=== PATIENT | female | born 2000 | race Two or more races ===

== ENCOUNTER 2020-05-22 05:59 | Observation (INO) ==
[2020-05-22 06:49] LABS: BASOPHILS % (AUTO) 0.2 % (0.2-1.0); EOSINOPHILS % (AUTO) 0.1 % (0.9-2.9); HEMATOCRIT 35.1 % (36.0-47.0); HEMOGLOBIN 11.7 g/dL (12.0-16.0); LYMPHOCYTES # (AUTO) 0.9 X10^3/uL (1.3-2.9); LYMPHOCYTES % (AUTO) 6.3 % (21.0-51.0); MEAN CORPUSCULAR HEMOGLOBIN 28.6 pg (27.0-34.0); MEAN CORPUSCULAR HGB CONC 33.3 g/dL (33.0-35.0); MEAN CORPUSCULAR VOLUME 85.8 fL (80.0-100.0); MONOCYTES # (AUTO) 1.2 x10^3/uL (0.3-0.8); MONOCYTES % (AUTO) 8.3 % (0.0-13.0); NEUTROPHILS # (AUTO) 12.3 x10^3/uL (2.2-4.8); NEUTROPHILS % (AUTO) 85.1 % (42.0-75.0); PLATELET COUNT 386 X10^3/uL (150.0-450.0); RED BLOOD COUNT 4.09 X10^6/uL (3.5-5.4); RED CELL DISTRIBUTION WIDTH 12.8 % (11.6-16.5); WHITE BLOOD COUNT 14.4 X10^3/uL (3.6-10.0)
[2020-05-22 06:49] LABS: BILIRUBIN,URINE NEGATIVE (NEGATIVE); BLOOD/HEMOGLOBIN,URINE 2+ (NEGATIVE); GLUCOSE, URINE NEGATIVE (NEGATIVE); KETONES,URINE 4+ (NEGATIVE); LEUKOCYTE ESTERASE ,URINE 3+ (NEGATIVE); NITRITES,URINE NEGATIVE (NEGATIVE); PROTEIN,URINE 1+ (NEGATIVE); UROBILINOGEN,URINE 2+ (NORMAL)
[2020-05-22 07:01] LABS: eGFR NON BLACK RACES > 60 (>60)
[2020-05-22 07:05] LABS: SERUM PREGNANCY TEST, QUAL NEGATIVE <10 mIU/mL
[2020-05-22 07:06] LABS: APPEARANCE,URINE CLOUDY (CLEAR); BACTERIA,URINE 1+ /HPF (NEGATIVE); COLOR,URINE YELLOW (YELLOW); RBC,URINE 0-2 /HPF (0-3); SQUAMOUS EPITHELIAL CELL,UR FEW /HPF (NEGATIVE)
[2020-05-22 07:09] LABS: AMYLASE 36 Units/L (25-115); LIPASE 96 Units/L (73-393)
[2020-05-22 07:15] LABS: ALANINE AMINOTRANSFERASE 15 Units/L (12-78); ALBUMIN 3.7 g/dL (3.4-5.0); ALKALINE PHOSPHATASE 72 Units/L (46-116); ASPARTATE AMINO TRANSFERASE 16 Units/L (15-37); BLOOD UREA NITROGEN 7 mg/dL (7-18); CALCIUM 9.5 mg/dL (8.5-10.1); CHLORIDE 100 mmol/L (98-107); COR NA(FOR HYPERGLY) 136 mmol/L (136-145); SODIUM 135 mmol/L (136-145); TOTAL PROTEIN 8.2 g/dL (6.4-8.2)
[2020-05-22] MEDS ORDERED: NS 1000 ML 1,000 ML IV ONE (07:39)
[2020-05-22] MEDS ORDERED: ZOFRAN INJ 4 MG VIAL IVP ONE (07:39)
[2020-05-22] MEDS ORDERED: TORADOL 30 MG VIAL IVP ONE (07:39)
[2020-05-22] MEDS ORDERED: ZOFRAN INJ 4 MG VIAL ONE ×2 (07:44→09:46)
[2020-05-22] MEDS ORDERED: TORADOL 30 MG VIAL ONE ×2 (07:44→09:46)
--- NOTE | 2020-05-22 07:44 | ED.ABDFE ---
HPI Time Seen Time Seen by Provider: 05/22/20 07:34 PCP Primary Care Physician: FRANK HPI Comment HPI Comment: Patient presents with 3 days of N/V and low back/right flank pain. No fever or known sick contact. No bad food exposure. Not currently on menstrual period. Patient notes that she has been unable to tolerate po. no radiation of pain. No history of kidney stone. Complaint Chief Complaint:: PT AMBULATORY IN ED WITH C/O ABD PAIN X 3 DAYS. COVID-19 Coronavirus risk:travel/contact w/high risk person: No Has patient experienced Coronavirus symptoms: Yes Coronavirus symptoms experienced: Fever, Coughing and Shortness of Breath Source History Provided: Patient Mode of arrival Mode of Arrival: Ambulatory Timing Onset of Chief Complaint: 05/18/20 PMH PMH Past Medical History: No Past Surgical History: No Surgical History: No History Family History History of Family Medical Conditions: Yes Family Medical History: Diabetes Mellitus, Cancer, [place], Coronary Artery Disease and Hypertension Social History Does patient currently use any type of tobacco product: No Have you used tobacco products in the last 12 months: No Type of Tobacco Use: None Does any household member use tobacco: No Alcohol Use: None Do you use any recreational Drugs:: No Lives With: Family Lives Where: Home Travel Risk Coronavirus risk:travel/contact w/high risk person: No Has patient experienced Coronavirus symptoms: Yes Coronavirus symptoms experienced: Fever, Coughing and Shortness of Breath Infectious screening In the last 2 months have you had wt loss of >10#?: NO Have you had fever, night sweats or hemotysis?: No Have you traveled outside the country in the last 6 months?: No Isolation: Standard ROS Review of Systems Constitutional: See HPI Gastrointestinal/Abdominal: Abdominal Pain, Nausea and Vomiting Genitourinary: No Symptoms Reported All Other Systems: Reviewed and Negative PE Vital Signs Vitals: Temperature 99.7 F Pulse Rate 90 Respiratory Rate 20 Blood Pressure 134/79 O2 Sat by Pulse Oximetry 95 General Limitations: No Limitations General Appearance: Alert and In No Apparent Distress Head Head Exam: Normal Inspection, Atraumatic and Normocephalic Eyes Eye exam: Normal Appearance and EOMI ENT ENT Exam: Normal Exam Neck Neck Exam: Normal Inspection and Full ROM Chest Chest Inspection: Normal Inspection and Symmetric Chest Wall Rise Respiratory Respiratory Exam: Normal Lung Sounds Bilat Respiratory Exam: Bilateral: Clear to Auscultation Cardiovascular Cardiovascular Exam: Regular Rate, Normal Rhythm and Normal Heart Sounds Abdominal Exam Abdominal Exam: Normal Inspection, Normal Bowel Sounds and Soft Back Back Exam: (R) CVA Tenderness Extremeties Extremities Exam: Normal Inspection and Full ROM Neurologic Neurological Exam: Alert and Oriented X3 Psychiatric Psychiatric Exam: Normal Affect and Normal Mood Skin Skin Exam: Warm, Dry and Intact ROR Labs Reviewed Result Diagrams: 05/22/20 06:25 05/22/20 06:25 Laboratory: WBC 14.4 X10^3/uL (3.6-10.0) H 05/22/20 06:25 RBC 4.09 X10^6/uL (3.5-5.4) 05/22/20 06:25 Hgb 11.7 g/dL (12.0-16.0) L 05/22/20 06:25 Hct 35.1 % (36.0-47.0) L 05/22/20 06:25 MCV 85.8 fL (80.0-100.0) 05/22/20 06:25 MCH 28.6 pg (27.0-34.0) 05/22/20 06:25 MCHC 33.3 g/dL (33.0-35.0) 05/22/20 06:25 RDW 12.8 % (11.6-16.5) 05/22/20 06:25 Plt Count 386 X10^3/uL (150.0-450.0) 05/22/20 06:25 MPV 8.0 fL (7.4-11.0) 05/22/20 06:25 Neut % (Auto) 85.1 % (42.0-75.0) H 05/22/20 06:25 Lymph % (Auto) 6.3 % (21.0-51.0) L 05/22/20 06:25 [place] % (Auto) 8.3 % (0.0-13.0) 05/22/20 06:25 Eos % (Auto) 0.1 % (0.9-2.9) L 05/22/20 06:25 Baso % (Auto) 0.2 % (0.2-1.0) 05/22/20 06:25 Neut # (Auto) 12.3 x10^3/uL (2.2-4.8) H 05/22/20 06:25 Lymph # (Auto) 0.9 X10^3/uL (1.3-2.9) L 05/22/20 06:25 [place] # (Auto) 1.2 x10^3/uL (0.3-0.8) H 05/22/20 06:25 Eos # (Auto) 0.0 x10^3/uL (0.0-0.2) 05/22/20 06:25 Baso # (Auto) 0.0 X10^3/uL (0.0-0.1) 05/22/20 06:25 Absolute Nucleated RBC 0.0 /100WBC 05/22/20 06:25 Sodium 135 mmol/L (136-145) L 05/22/20 06:25 Corrected Sodium 136 mmol/L (136-145) 05/22/20 06:25 Potassium 3.5 mmol/L (3.5-5.1) 05/22/20 06:25 Chloride 100 mmol/L (98-107) 05/22/20 06:25 Carbon Dioxide 23.0 mmol/L (21-32) 05/22/20 06:25 BUN 7 mg/dL (7-18) 05/22/20 06:25 Creatinine 0.70 mg/dL (0.55-1.02) 05/22/20 06:25 Est GFR (MDRD) Af Amer > 60 (>60) 05/22/20 06:25 Est GFR (MDRD) Non-Af > 60 (>60) 05/22/20 06:25 Glucose 134 mg/dL (65-99) H 05/22/20 06:25 Calcium 9.5 mg/dL (8.5-10.1) 05/22/20 06:25 Corrected Calcium TNP 05/22/20 06:25 Total Bilirubin 0.60 mg/dL (0.2-1.0) 05/22/20 06:25 AST 16 Units/L (15-37) 05/22/20 06:25 ALT 15 Units/L (12-78) 05/22/20 06:25 Alkaline Phosphatase 72 Units/L (46-116) 05/22/20 06:25 Total Protein 8.2 g/dL (6.4-8.2) 05/22/20 06:25 Albumin 3.7 g/dL (3.4-5.0) 05/22/20 06:25 Globulin 4.5 g/dL (2.5-4.5) 05/22/20 06:25 Albumin/Globulin Ratio 0.8 Ratio (1.1-2.1) L 05/22/20 06:25 Amylase 36 Units/L (25-115) 05/22/20 06:25 Lipase 96 Units/L (73-393) 05/22/20 06:25 HCG, Qual Negative <10 mIU/mL 05/22/20 06:25 Specimen Type Clean catch urine 05/22/20 06:30 Urine Color Yellow (YELLOW) 05/22/20 06:30 Urine Appearance Cloudy (CLEAR) 05/22/20 06:30 Urine pH 6.0 (5.0 - 8.0) 05/22/20 06:30 Ur Specific [place] 1.025 (1.000-1.030) 05/22/20 06:30 Urine Protein 1+ (NEGATIVE) 05/22/20 06:30 Urine Glucose (UA) Negative (NEGATIVE) 05/22/20 06:30 Urine Ketones 4+ (NEGATIVE) 05/22/20 06:30 Urine Occult Blood 2+ (NEGATIVE) 05/22/20 06:30 Urine Nitrite Negative (NEGATIVE) 05/22/20 06:30 Urine Bilirubin Negative (NEGATIVE) 05/22/20 06:30 Urine Urobilinogen 2+ (NORMAL) 05/22/20 06:30 Ur Leukocyte Esterase 3+ (NEGATIVE) 05/22/20 06:30 Urine RBC 0-2 /HPF (0-3) 05/22/20 06:30 Urine WBC 5-10 /HPF (0-5) A 05/22/20 06:30 Ur Squamous Epith Cells Few /HPF (NEGATIVE) 05/22/20 06:30 Urine Bacteria 1+ /HPF (NEGATIVE) 05/22/20 06:30 Ur Culture Indicated? Yes/culture set up 05/22/20 06:30 Opioid Opioid Risk Tool Age (Ralph box if 16-45): Yes History of Preadolescent Sexual Abuse: No Total: 1 Total Score Risk Category: Low Risk Copyright: Travis RUSSELL predicting aberrant behaviors
[2020-05-22] MEDS ORDERED: NS 1000 ML 1,000 ML ONE ×2 (07:45→09:59)
--- NOTE | 2020-05-22 08:19 | RAD ---
Exam:ACUTE ABDOMEN SERIESIndication: C/O ABD PAIN X 3 DAYSComparison: [None available]Findings: [The lungs are clear. No pleural effusion or pneumothorax. The heart size is within normal limts.The bowel gas pattern is unremarkable, specifically there is no radiographic evidence to suggest an obstruction. No free air or pneumatosis.No definite mass or abnormal calcification within the abdomen or pelvis.No acute osseous abnormality.Impression:No acute cardiopulmonary abnormality.No acute radiographic abnormality within the abdomen or pelvis.]Electronically signed by: GAMA GUZMAN (May 22, 2020 08:18:51)
--- NOTE | 2020-05-22 08:30 | ED.ABDFE ---
HPI Time Seen Time Seen by Provider: 05/22/20 07:34 PCP Primary Care Physician: FRANK HPI Comment HPI Comment: PATIENT IS 20YR OLD FEMALE IN ER WITH EPIGASTRIC ABDOMINAL PAIN RADIATING ON BOTH SIDES TO TH BACK AND UP THE CHEST ASSOCIATED WITH NAUSEA AND VOMITING TIMES 3 DAYS. VOMITUS UNDIGESTED FOOD. RUNNING LOW GRADE FEVER. PAIN IS 7/10 AND BURNING CRAMPING IN NATURE. SIMILAR MILDER PAIN SINCE OCTOBER THIS YEAR. VOMITING DID NOT ALLOW HER TO TAKE MEDICATION BY MOUTH. Complaint Doctors Chief Complaint Comments: ABDOMINAL PAIN TIMES 3 DAYS. Chief Complaint:: PT AMBULATORY IN ED WITH C/O ABD PAIN X 3 DAYS. COVID-19 Coronavirus risk:travel/contact w/high risk person: No Has patient experienced Coronavirus symptoms: Yes Coronavirus symptoms experienced: Fever, Coughing and Shortness of Breath Source History Provided: Patient Mode of arrival Mode of Arrival: Ambulatory Timing Onset of Chief Complaint: 05/18/20 Came on: Suddenly Duration Since Onset: Constant Duration: Days Location Location: Epigastric Severity Severity: Moderate Quality Quality: Sharp Context History of: None Modifying factors Worsening Factors: Food Improving Factors: Nothing Associated signs and symptoms Associated Signs and Symptoms: Nausea, Vomiting and Other (EPIGASTRIC PAIN) PMH PMH Past Medical History: No Past Surgical History: No Surgical History: No History Family History History of Family Medical Conditions: Yes Family Medical History: Diabetes Mellitus, Cancer, [place], Coronary Artery Disease and Hypertension Social History Does patient currently use any type of tobacco product: No Have you used tobacco products in the last 12 months: No Type of Tobacco Use: None Does any household member use tobacco: No Alcohol Use: None Do you use any recreational Drugs:: No Lives With: Family Lives Where: Home Travel Risk Coronavirus risk:travel/contact w/high risk person: No Has patient experienced Coronavirus symptoms: Yes Coronavirus symptoms experienced: Fever, Coughing and Shortness of Breath Infectious screening In the last 2 months have you had wt loss of >10#?: NO Have you had fever, night sweats or hemotysis?: No Have you traveled outside the country in the last 6 months?: No Isolation: Standard ROS Review of Systems Constitutional: See HPI, Fever and Fatigue; negative Weakness Eyes: No Symptoms Reported and See HPI ENTM: No Symptoms Reported and See HPI; negative Nose Discharge and Nose Congestion Respiratoy: No Symptoms Reported and See HPI; negative Moist Cough, Short of Breath and Wheezing Cardiovascular: No Symptoms Reported and See HPI; negative Chest Pain, Edema and Palpitations Gastrointestinal/Abdominal: See HPI, Abdominal Pain, Nausea and Vomiting; negative Constipation and Diarrhea Genitourinary: No Symptoms Reported and See HPI; negative Dysuria, Frequency and Hematuria Neurological: No Symptoms Reported and See HPI; negative Headache, Weakness and Dizziness Musculoskeletal: No Symptoms Reported and See HPI; negative Back Pain and Muscle Pain Integumentary: No Symptoms Reported and See HPI; negative Change in Color, Rash and Juandice Hematologic/Lymphatic: No Symptoms Reported and See HPI; negative Easy Bruising and Swollen Glands Endocrine: No Symptoms Reported and See HPI; negative Increased Thirst and Increased Urine Psychiatric: No Symptoms Reported and See HPI All Other Systems: Reviewed and Negative PE Vital Signs Vitals: Temperature 99.7 F Pulse Rate 90 Respiratory Rate 22 Blood Pressure 134/79 O2 Sat by Pulse Oximetry 95 General Limitations: No Limitations and Language Barrier General Appearance: Alert and In No Apparent Distress Head Head Exam: Normal Inspection Eyes Eye exam: Normal Appearance and PERRL; negative Scleral Icterus and Conjunctival Injection ENT ENT Exam: Normal Exam, Normal Oropharynx, Normal External Ear Exam and TM's Normal Bilaterally Neck Neck Exam: Normal Inspection and Trachea Midline; negative Tenderness and Lymphadenopathy Chest Chest Inspection: Normal Inspection and Symmetric Chest Wall Rise; negative Tenderness Respiratory Respiratory Exam: Normal Lung Sounds Bilat; negative Accessory Muscle Use, Chest Wall Tenderness and Respiratory Distress Respiratory Exam: Bilateral: Clear to Auscultation Cardiovascular Cardiovascular Exam: Regular Rate, Normal Rhythm and Normal Heart Sounds; negative Systolic Murmur and Diastolic Murmur Abdominal Exam Abdominal Exam: Normal Inspection, Normal Bowel Sounds, Soft and Tenderness Rectal Rectal Exam: Deferred Back Back Exam: Normal Inspection; negative (R) CVA Tenderness, (L) CVA Tenderness and Paraspinal Tenderness Extremeties Extremities Exam: Normal Inspection and Normal Capillary Refill; negative Tenderness and Calf Tenderness External Exam: Female: Deferred : Speculum Exam (Female): Deferred : Bimanual Exam (female): Deferred Neurologic Neurological Exam: Alert, Oriented X3 and CN II-XII Intact; negative Motor Sensory Deficit Psychiatric Psychiatric Exam: Normal Affect and Normal Mood Skin Skin Exam: Warm, Dry, Intact and Normal Color MDM Differential Diagnosis Differential Diagnosis- Considerations may include:: Bowel Obstruction, Cholcystitis, Cholelethiasis, Constipation, Diverticular disease, Gastritus/PUD, Inflammatory BD, Pancreatitis, Urinary tract infection and Urolithiasis COURSE Treatment Treatment: SEE ORDERS. NS 1L IV BOLUS IN ER WITH ZOFRAN 4MG IV AND TORADOL 30MG IV IN ER. Reevaluation 1st: Improved Consultation Consultation Comments: DISCUSSED PATIENT WITH DR. BRADY. HE WILL ADMIT PATIENT. DR. ELKINS CONSULTED. Education/Counseling Education/Counseling: Patient Educated On: Diagnosis ROR Labs Reviewed Laboratory Results Reviewed?: Yes Result Diagrams: 05/22/20 06:25 05/22/20 06:25 Laboratory: WBC 14.4 X10^3/uL (3.6-10.0) H 05/22/20 06:25 RBC 4.09 X10^6/uL (3.5-5.4) 05/22/20 06:25 Hgb 11.7 g/dL (12.0-16.0) L 05/22/20 06:25 Hct 35.1 % (36.0-47.0) L 05/22/20 06:25 MCV 85.8 fL (80.0-100.0) 05/22/20 06:25 MCH 28.6 pg (27.0-34.0) 05/22/20 06:25 MCHC 33.3 g/dL (33.0-35.0) 05/22/20 06:25 RDW 12.8 % (11.6-16.5) 05/22/20 06:25 Plt Count 386 X10^3/uL (150.0-450.0) 05/22/20 06:25 MPV 8.0 fL (7.4-11.0) 05/22/20 06:25 Neut % (Auto) 85.1 % (42.0-75.0) H 05/22/20 06:25 Lymph % (Auto) 6.3 % (21.0-51.0) L 05/22/20 06:25 [place] % (Auto) 8.3 % (0.0-13.0) 05/22/20 06:25 Eos % (Auto) 0.1 % (0.9-2.9) L 05/22/20 06:25 Baso % (Auto) 0.2 % (0.2-1.0) 05/22/20 06:25 Neut # (Auto) 12.3 x10^3/uL (2.2-4.8) H 05/22/20 06:25 Lymph # (Auto) 0.9 X10^3/uL (1.3-2.9) L 05/22/20 06:25 [place] # (Auto) 1.2 x10^3/uL (0.3-0.8) H 05/22/20 06:25 Eos # (Auto) 0.0 x10^3/uL (0.0-0.2) 05/22/20 06:25 Baso # (Auto) 0.0 X10^3/uL (0.0-0.1) 05/22/20 06:25 Absolute Nucleated RBC 0.0 /100WBC 05/22/20 06:25 Sodium 135 mmol/L (136-145) L 05/22/20 06:25 Corrected Sodium 136 mmol/L (136-145) 05/22/20 06:25 Potassium 3.5 mmol/L (3.5-5.1) 05/22/20 06:25 Chloride 100 mmol/L (98-107) 05/22/20 06:25 Carbon Dioxide 23.0 mmol/L (21-32) 05/22/20 06:25 BUN 7 mg/dL (7-18) 05/22/20 06:25 Creatinine 0.70 mg/dL (0.55-1.02) 05/22/20 06:25 Est GFR (MDRD) Af Amer > 60 (>60) 05/22/20 06:25 Est GFR (MDRD) Non-Af > 60 (>60) 05/22/20 06:25 Glucose 134 mg/dL (65-99) H 05/22/20 06:25 Calcium 9.5 mg/dL (8.5-10.1) 05/22/20 06:25 Corrected Calcium TNP 05/22/20 06:25 Total Bilirubin 0.60 mg/dL (0.2-1.0) 05/22/20 06:25 AST 16 Units/L (15-37) 05/22/20 06:25 ALT 15 Units/L (12-78) 05/22/20 06:25 Alkaline Phosphatase 72 Units/L (46-116) 05/22/20 06:25 Total Protein 8.2 g/dL (6.4-8.2) 05/22/20 06:25 Albumin 3.7 g/dL (3.4-5.0) 05/22/20 06:25 Globulin 4.5 g/dL (2.5-4.5) 05/22/20 06:25 Albumin/Globulin Ratio 0.8 Ratio (1.1-2.1) L 05/22/20 06:25 Amylase 36 Units/L (25-115) 05/22/20 06:25 Lipase 96 Units/L (73-393) 05/22/20 06:25 HCG, Qual Negative <10 mIU/mL 05/22/20 06:25 Specimen Type Clean catch urine 05/22/20 06:30 Urine Color Yellow (YELLOW) 05/22/20 06:30 Urine Appearance Cloudy (CLEAR) 05/22/20 06:30 Urine pH 6.0 (5.0 - 8.0) 05/22/20 06:30 Ur Specific [place] 1.025 (1.000-1.030) 05/22/20 06:30 Urine Protein 1+ (NEGATIVE) 05/22/20 06:30 Urine Glucose (UA) Negative (NEGATIVE) 05/22/20 06:30 Urine Ketones 4+ (NEGATIVE) 05/22/20 06:30 Urine Occult Blood 2+ (NEGATIVE) 05/22/20 06:30 Urine Nitrite Negative (NEGATIVE) 05/22/20 06:30 Urine Bilirubin Negative (NEGATIVE) 05/22/20 06:30 Urine Urobilinogen 2+ (NORMAL) 05/22/20 06:30 Ur Leukocyte Esterase 3+ (NEGATIVE) 05/22/20 06:30 Urine RBC 0-2 /HPF (0-3) 05/22/20 06:30 Urine WBC 5-10 /HPF (0-5) A 05/22/20 06:30 Ur Squamous Epith Cells Few /HPF (NEGATIVE) 05/22/20 06:30 Urine Bacteria 1+ /HPF (NEGATIVE) 05/22/20 06:30 Ur Culture Indicated? Yes/culture set up 05/22/20 06:30 XRAY XRAY Interpreted by: Radiologist (REPORT NOTED AND DISCUSSED WITH PATIENT.) and Self Opioid Opioid Risk Tool Age (Ralph box if 16-45): Yes History of Preadolescent Sexual Abuse: No Total: 1 Total Score Risk Category: Low Risk Copyright: Travis RUSSELL predicting aberrant behaviors Diagnosis Discharge Problem: Acute cholecystitis Cholelithiases Qualifiers: Cholelithiasis location: gallbladder Cholecystitis presence: with cholecystitis Cholecystitis acuity: acute Biliary obstruction: without biliary obstruction Qualified Code(s): K80.00 - Calculus of gallbladder with acute cholecystitis without obstruction Abdominal pain Qualifiers: Abdominal location: epigastric Qualified Code(s): R10.13 - Epigastric pain Nausea & vomiting Qualifiers: Vomiting type: bilious vomiting Qualified Code(s): R11.14 - Bilious vomiting Instructions Forms: Precautions for COVID19 Patient Portal Social Distancing
--- NOTE | 2020-05-22 08:31 | CT ---
HISTORYC/O ABD PAIN X 3 DAYSSTUDYABDOMEN/PELVIS W/O CONCOMPARISONNone availableTECHNIQUEMultiple axial images of the abdomen and pelvis were obtained from the lung bases to the pubic symphysis without the administration of IV contrast. Dose reduction techniques including Automated Exposure Control (AEC) and adjustment of mA and kV were utilized.FINDINGS[The lung bases are clear. Heart size is normal. Given limitations of a noncontrast examination no focal hepatic lesion. Liver morphology is normal. Gallbladder is abnormal and is, moderately dilated with marked submucosal edema and increased density within the lumen. Bile ducts are normal in caliber. The spleen, pancreas and adrenal glands are normal. Neither kidney demonstrates evidence of nephrolithiasis, hydronephrosis or mass. Upper GI tract demonstrates no evidence of mass or obstruction. Small amount of pelvic free fluid. Uterus is globular in morphology without definite mass or fibroid. The rectum and colon are normal. The appendix is normal. Abdominal aorta is normal in caliber. No enlarged abdominal or pelvic lymph node. Review of bone windows demonstrates no acute osseous abnormality.]IMPRESSIONAbnormal gallbladder with moderate dilatation, submucosal edema and increased density within the gallbladder lumen, this likely represents combination of sludge and stones however given the density clot/hemorrhage within the lumen is not excluded. Correlation with physical exam findings and right upper quadrant sonogram is recommended as this is suspicious for acute cholecystitis. Other causes of submucosal edema including hypoproteinemia and/or acute viral hepatitis are considerations however would be a diagnosis of exclusion.Electronically signed by: GAMA GUZAMN (May 22, 2020 08:31:27)
[2020-05-22] MEDS ORDERED: DECADRON INJ ONE (09:46)
[2020-05-22] MEDS ORDERED: DIPRIVAN VIAL ONE (09:46)
[2020-05-22] MEDS ORDERED: QUELICIN (OR ANECTINE) ONE (09:46)
[2020-05-22] MEDS ORDERED: NORCURON INJ 10 MG VIAL ONE (09:46)
[2020-05-22] MEDS ORDERED: XYLOCAINE 1 % (PLAIN) ONE (09:46)
[2020-05-22] MEDS ORDERED: NEOSTIGMINE INJ ONE (09:46)
[2020-05-22] MEDS ORDERED: ULTANE GAS IN ONE (09:46)
[2020-05-22] MEDS ORDERED: VERSED ONE (09:46)
[2020-05-22] MEDS ORDERED: ROBINUL ONE (09:46)
[2020-05-22] MEDS ORDERED: ZOSYN VIAL 3.375 GRAMS IV ONE (09:59)
[2020-05-22] MEDS ORDERED: NS 100 ML IV 100 ML IV ONE (10:00)
[2020-05-22] MEDS: NS 1000 ML 1,000 ML IV SCH ×2 (10:16→20:26)
[2020-05-22] MEDS: ZOSYN VIAL 3.375 GRAMS 3.375 G in NS 100 ML IV + SPIKE MINIBAG* 100 ML IV SCH ×3 (10:17→21:17)
--- NOTE | 2020-05-22 10:59 | DR.H&P ---
H&P History & Physical for Day of: H&P Date: 05/22/20 Chief Complaint Chief Complaint: Abdominal pain Allergies Allergies Allergy/AdvReac Type Severity Reaction Status Date / Time No Known Drug Allergies Allergy Verified 05/22/20 06:07 History of Present Illness History of Present Illness: Pt is a 20 yo f no pmhx presenting after having progressively worsening abdominal pain for the past 3 days. She reports associated symptoms nausea and vomiting. Pain is "cramping" and persistent. Labs/imaging: Wbc 14.4, Hgb 11.7, Plt 386, Na 135, K 3.5, Cr 0.7, Gluc 134, AST 16, ALT 15, ALK Phos 72, Lipase 96, HCG negative, UA:+leuks, ketones, protein, wbc, bacteria; UrineCx pending, Abd XR: negative, CTAP:Abnormal gallbladder with moderate dilatation, submucosal edema and increased density within the gallbladder lumen, this likely represents combination of sludge and stones however given the density clot/hemorrhage within the lumen is not excluded. Correlation with physical exam findings and right upper quadrant sonogram is recommended as this is suspicious for acute cholecystitis. Other causes of submucosal edema including hypoproteinemia and/or acute viral hepatitis are considerations however would be a diagnosis of exclusion. Treatment course includes: IVF NS@125ml/h, Abx: Zosyn, Zofran prn, Demerol and Toradol for pain. She is on full liquid diet, will be NPO after midnight. Imaging concerning for acute cholecystitis. Will get U/S gallbladder, and consult surgery for further evaluation. Continue to monitor and follow up labs/imaging in the morning. Past Surgical History Surgical History: No History Family History Family Medical History: Diabetes Mellitus, Cancer, [place], Coronary Artery Disease and Hypertension Social History Does patient currently use any type of tobacco product: No Have you used tobacco products in the last 12 months: No Type of Tobacco Use: None Does any household member use tobacco: No Alcohol Use: None Medications Home Medications: No Known Drug Allergies Allergy (Verified 05/22/20 06:07) CONTINUE taking the following medications NK 05/22/20 [History] Labs Result Diagrams: 05/22/20 06:25 05/22/20 06:25 Labs: Laboratory WBC 14.4 X10^3/uL (3.6-10.0) H 05/22/20 06:25 RBC 4.09 X10^6/uL (3.5-5.4) 05/22/20 06:25 Hgb 11.7 g/dL (12.0-16.0) L 05/22/20 06:25 Hct 35.1 % (36.0-47.0) L 05/22/20 06:25 MCV 85.8 fL (80.0-100.0) 05/22/20 06:25 MCH 28.6 pg (27.0-34.0) 05/22/20 06:25 MCHC 33.3 g/dL (33.0-35.0) 05/22/20 06:25 RDW 12.8 % (11.6-16.5) 05/22/20 06:25 Plt Count 386 X10^3/uL (150.0-450.0) 05/22/20 06:25 MPV 8.0 fL (7.4-11.0) 05/22/20 06:25 Neut % (Auto) 85.1 % (42.0-75.0) H 05/22/20 06:25 Lymph % (Auto) 6.3 % (21.0-51.0) L 05/22/20 06:25 [place] % (Auto) 8.3 % (0.0-13.0) 05/22/20 06:25 Eos % (Auto) 0.1 % (0.9-2.9) L 05/22/20 06:25 Baso % (Auto) 0.2 % (0.2-1.0) 05/22/20 06:25 Neut # (Auto) 12.3 x10^3/uL (2.2-4.8) H 05/22/20 06:25 Lymph # (Auto) 0.9 X10^3/uL (1.3-2.9) L 05/22/20 06:25 [place] # (Auto) 1.2 x10^3/uL (0.3-0.8) H 05/22/20 06:25 Eos # (Auto) 0.0 x10^3/uL (0.0-0.2) 05/22/20 06:25 Baso # (Auto) 0.0 X10^3/uL (0.0-0.1) 05/22/20 06:25 Absolute Nucleated RBC 0.0 /100WBC 05/22/20 06:25 Sodium 135 mmol/L (136-145) L 05/22/20 06:25 Corrected Sodium 136 mmol/L (136-145) 05/22/20 06:25 Potassium 3.5 mmol/L (3.5-5.1) 05/22/20 06:25 Chloride 100 mmol/L (98-107) 05/22/20 06:25 Carbon Dioxide 23.0 mmol/L (21-32) 05/22/20 06:25 BUN 7 mg/dL (7-18) 05/22/20 06:25 Creatinine 0.70 mg/dL (0.55-1.02) 05/22/20 06:25 Est GFR (MDRD) Af Amer > 60 (>60) 05/22/20 06:25 Est GFR (MDRD) Non-Af > 60 (>60) 05/22/20 06:25 Glucose 134 mg/dL (65-99) H 05/22/20 06:25 Calcium 9.5 mg/dL (8.5-10.1) 05/22/20 06:25 Corrected Calcium TNP 05/22/20 06:25 Total Bilirubin 0.60 mg/dL (0.2-1.0) 05/22/20 06:25 AST 16 Units/L (15-37) 05/22/20 06:25 ALT 15 Units/L (12-78) 05/22/20 06:25 Alkaline Phosphatase 72 Units/L (46-116) 05/22/20 06:25 Total Protein 8.2 g/dL (6.4-8.2) 05/22/20 06:25 Albumin 3.7 g/dL (3.4-5.0) 05/22/20 06:25 Globulin 4.5 g/dL (2.5-4.5) 05/22/20 06:25 Albumin/Globulin Ratio 0.8 Ratio (1.1-2.1) L 05/22/20 06:25 Amylase 36 Units/L (25-115) 05/22/20 06:25 Lipase 96 Units/L (73-393) 05/22/20 06:25 HCG, Qual Negative <10 mIU/mL 05/22/20 06:25 Specimen Type Clean catch urine 05/22/20 06:30 Urine Color Yellow (YELLOW) 05/22/20 06:30 Urine Appearance Cloudy (CLEAR) 05/22/20 06:30 Urine pH 6.0 (5.0 - 8.0) 05/22/20 06:30 Ur Specific [place] 1.025 (1.000-1.030) 05/22/20 06:30 Urine Protein 1+ (NEGATIVE) 05/22/20 06:30 Urine Glucose (UA) Negative (NEGATIVE) 05/22/20 06:30 Urine Ketones 4+ (NEGATIVE) 05/22/20 06:30 Urine Occult Blood 2+ (NEGATIVE) 05/22/20 06:30 Urine Nitrite Negative (NEGATIVE) 05/22/20 06:30 Urine Bilirubin Negative (NEGATIVE) 05/22/20 06:30 Urine Urobilinogen 2+ (NORMAL) 05/22/20 06:30 Ur Leukocyte Esterase 3+ (NEGATIVE) 05/22/20 06:30 Urine RBC 0-2 /HPF (0-3) 05/22/20 06:30 Urine WBC 5-10 /HPF (0-5) A 05/22/20 06:30 Ur Squamous Epith Cells Few /HPF (NEGATIVE) 05/22/20 06:30 Urine Bacteria 1+ /HPF (NEGATIVE) 05/22/20 06:30 Ur Culture Indicated? Yes/culture set up 05/22/20 06:30 Review of Systems Constitutional: No Symptoms Reported Eyes: No Symptoms Reported ENT: No Symptoms Reported Respiratory: No Symptoms Reported Cardiovascular: No Symptoms Reported Gastrointestinal: Nausea, Vomiting and Abdominal Pain; denies Diarrhea and Cons tipation Genitourinary: No Symptoms Reported Musculoskeletal: No Symptoms Reported Skin: No Symptoms Reported Neurological: No Symptoms Reported Physical Exam Vital Signs: Temperature 99.7 F Pulse Rate 90 Respiratory Rate 22 Blood Pressure 134/79 O2 Sat by Pulse Oximetry 95 Oriented: Normal Eyes: Normal Ear: Normal Nose: Normal Respiratory: Clear Throughout Cardiovascular: Normal : Normal Auscultation: Bowel Sounds: Normal Palpation: Normal Tenderness: RUQ, Epigastric and Moderate Skin: Normal Musculoskeletal: Normal Psychiatric: Normal Mood Description: Calm and Appropriate Affect: Normal Speech Pattern: Clear and Appropriate Assessment/Plan (1) Acute cholecystitis: Status: Acute Plan: NPO after midnight U/S gallbladder Abx:Zosyn Surgery consulted, follow up recs (2) Cholelithiases: Qualifiers: Biliary obstruction: without biliary obstruction Cholecystitis acuity: acute Cholecystitis presence: with cholecystitis Cholelithiasis location: gallbladder Qualified Code(s): K80.00 - Calculus of gallbladder with acute cholecystitis without obstruction Status: Acute (3) Abdominal pain: Qualifiers: Abdominal location: epigastric Qualified Code(s): R10.13 - Epigastric pain Status: Acute (4) Nausea & vomiting: Qualifiers: Vomiting type: bilious vomiting Qualified Code(s): R11.14 - Bilious vomiting Status: Acute Review H&P Reviewed: Yes Patient was examined?: Yes
[2020-05-22 11:01] VITALS: BMI 33.3
[2020-05-22] MEDS: DEMEROL INJ IVP PRN ×2 (13:54→21:18)
[2020-05-22] MEDS ORDERED: MORPHINE SULFATE INJ 2 MG INJ ONE (16:29)
[2020-05-22] MEDS ORDERED: PEPCID 20 MG IV PREMIX* 20 MG/50 ML BAG IV ONE (16:30)
[2020-05-22] MEDS: ZOFRAN INJ 4 MG VIAL IVP PRN ×2 (16:40→22:54)
[2020-05-22] MEDS: MORPHINE SULFATE INJ 2 MG INJ IVP PRN ×2 (16:40→22:54)
[2020-05-22] MEDS: PEPCID 20 MG IV PREMIX* 20 MG/50 ML BAG IV SCH (16:40)
[2020-05-22] MEDS ORDERED: TYLENOL 325 MG TAB PO PRN (20:01)
[2020-05-22] MEDS: BENTYL CAP 10 MG PO SCH ×2 (20:27)
[2020-05-23] MEDS: DEMEROL INJ IVP PRN (03:50)
[2020-05-23] MEDS: NS 1000 ML 1,000 ML IV SCH ×2 (03:50→11:43)
[2020-05-23] MEDS: ZOSYN VIAL 3.375 GRAMS 3.375 G in NS 100 ML IV + SPIKE MINIBAG* 100 ML IV SCH ×3 (05:16→21:04)
[2020-05-23] MEDS: MORPHINE SULFATE INJ 2 MG INJ IVP PRN (05:28)
[2020-05-23] MEDS: ZOFRAN INJ 4 MG VIAL IVP PRN ×3 (05:28→21:03)
[2020-05-23 06:33] LABS: BASOPHILS % (AUTO) 0.4 % (0.2-1.0); EOSINOPHILS # (AUTO) 0.1 x10^3/uL (0.0-0.2); EOSINOPHILS % (AUTO) 0.6 % (0.9-2.9); HEMATOCRIT 31.1 % (36.0-47.0); HEMOGLOBIN 10.6 g/dL (12.0-16.0); LYMPHOCYTES # (AUTO) 0.9 X10^3/uL (1.3-2.9); LYMPHOCYTES % (AUTO) 7.9 % (21.0-51.0); MEAN CORPUSCULAR HGB CONC 34.1 g/dL (33.0-35.0); MONOCYTES # (AUTO) 1.1 x10^3/uL (0.3-0.8); MONOCYTES % (AUTO) 10.3 % (0.0-13.0); NEUTROPHILS # (AUTO) 8.9 x10^3/uL (2.2-4.8); NEUTROPHILS % (AUTO) 80.8 % (42.0-75.0); PLATELET COUNT 316 X10^3/uL (150.0-450.0); RED BLOOD COUNT 3.66 X10^6/uL (3.5-5.4); RED CELL DISTRIBUTION WIDTH 12.8 % (11.6-16.5)
[2020-05-23 06:40] LABS: ALANINE AMINOTRANSFERASE 22 Units/L (12-78); ALBUMIN 2.7 g/dL (3.4-5.0); ALKALINE PHOSPHATASE 67 Units/L (46-116); AMYLASE 24 Units/L (25-115); ASPARTATE AMINO TRANSFERASE 22 Units/L (15-37); BLOOD UREA NITROGEN 4 mg/dL (7-18); CALCIUM 8.5 mg/dL (8.5-10.1); CARBON DIOXIDE 25.5 mmol/L (21-32); CHLORIDE 103 mmol/L (98-107); COR CA(FOR HYPOALB) 9.5 mg/dL (8.5-10.1); CREATININE 0.62 mg/dL (0.55-1.02); LIPASE 80 Units/L (73-393); SODIUM 136 mmol/L (136-145); TOTAL PROTEIN 6.7 g/dL (6.4-8.2); eGFR NON BLACK RACES > 60 (>60)
[2020-05-23] MEDS ORDERED: POTASSIUM CHLORIDE LIQ 20 MEQ UDC PO PRN (07:22)
[2020-05-23] MEDS ORDERED: POTASSIUM CHL 60 MEQ/NS 0.45% 500 ML IV PRN (07:22)
[2020-05-23] MEDS ORDERED: POTASSIUM CHL 40 MEQ/NS 0.45% 500 ML IV PRN (07:22)
[2020-05-23] MEDS ORDERED: TYLENOL SUPP 650 MG ONE (08:23)
[2020-05-23] MEDS: PEPCID 20 MG IV PREMIX* 20 MG/50 ML BAG IV SCH (08:41)
[2020-05-23] MEDS ORDERED: DECADRON INJ ONE (08:45)
[2020-05-23] MEDS ORDERED: MORPHINE SULFATE INJ 2 MG INJ ONE (08:46)
[2020-05-23] MEDS ORDERED: FENTANYL INJ 100 mcg ONE (08:46)
[2020-05-23] MEDS ORDERED: NS 1000 ML 1,000 ML ONE (08:47)
--- NOTE | 2020-05-23 08:56 | PCM.PROG ---
Progress Note Progress Note for Day of Date of Exam: 05/23/20 Subjective Subjective: Pt is a 20 yo f no pmhx admitted for cholecystitis. Overnight she had increased abdominal pain/cramping. Labs/imaging: Wbc 11, Hgb 10, Plt 316, Na 136, K 3.5, Cr 0.62, Gluc 99. Treatment course includes: IVF NS@125ml/h, Abx: Zosyn, Zofran prn, Demerol and Toradol for pain. Imaging concerning for acute cholecystitis. Pt was NPO after midnight. Surgery consulted, recommend laparoscopic cholecystectomy after evaluation with U/S. Continue to monitor and follow up labs/imaging in the morning. Past Medical Family Social History Past Med/Fam/Surg Hx: No changes since H&P Allergies: Allergies No Known Drug Allergies Allergy (Verified 05/22/20 06:07) Review of Systems ROS: No change since H&P Vital Signs and I&O's Vital Signs: Temperature 101.6 F Pulse Rate [Left Brachial] 126 Pulse Rate 90 Respiratory Rate 18 Blood Pressure [Left Arm] 102/59 Blood Pressure 134/79 O2 Sat by Pulse Oximetry 100 Intake and Output: Intake & Output 05/20/20 05/21/20 05/22/20 05/23/20 23:59 23:59 23:59 23:59 Intake Total 2109 922 / 922 Balance 2109 922 / 922 Physical Exam Oriented: Normal Eyes: Normal Ear: Normal Nose: Normal Respiratory: Normal Cardiovascular: Normal : Normal Auscultation: Bowel Sounds: Normal Tenderness: RUQ, Epigastric and Moderate Skin: Normal Musculoskeletal: Normal Psychiatric: Normal Mood Description: Calm and Appropriate Affect: Normal Speech Pattern: Clear and Appropriate Laboratory and Diagnostics Result Diagrams: 05/23/20 05:40 05/23/20 05:40 Labs: Laboratory WBC 11.0 X10^3/uL (3.6-10.0) H 05/23/20 05:40 RBC 3.66 X10^6/uL (3.5-5.4) 05/23/20 05:40 Hgb 10.6 g/dL (12.0-16.0) L 05/23/20 05:40 Hct 31.1 % (36.0-47.0) L 05/23/20 05:40 MCV 85.0 fL (80.0-100.0) 05/23/20 05:40 MCH 29.0 pg (27.0-34.0) 05/23/20 05:40 MCHC 34.1 g/dL (33.0-35.0) 05/23/20 05:40 RDW 12.8 % (11.6-16.5) 05/23/20 05:40 Plt Count 316 X10^3/uL (150.0-450.0) 05/23/20 05:40 MPV 8.0 fL (7.4-11.0) 05/23/20 05:40 Neut % (Auto) 80.8 % (42.0-75.0) H 05/23/20 05:40 Lymph % (Auto) 7.9 % (21.0-51.0) L 05/23/20 05:40 [place] % (Auto) 10.3 % (0.0-13.0) 05/23/20 05:40 Eos % (Auto) 0.6 % (0.9-2.9) L 05/23/20 05:40 Baso % (Auto) 0.4 % (0.2-1.0) 05/23/20 05:40 Neut # (Auto) 8.9 x10^3/uL (2.2-4.8) H 05/23/20 05:40 Lymph # (Auto) 0.9 X10^3/uL (1.3-2.9) L 05/23/20 05:40 [place] # (Auto) 1.1 x10^3/uL (0.3-0.8) H 05/23/20 05:40 Eos # (Auto) 0.1 x10^3/uL (0.0-0.2) 05/23/20 05:40 Baso # (Auto) 0.0 X10^3/uL (0.0-0.1) 05/23/20 05:40 Absolute Nucleated RBC 0.0 /100WBC 05/23/20 05:40 Sodium 136 mmol/L (136-145) 05/23/20 05:40 Corrected Sodium TNP 05/23/20 05:40 Potassium 3.5 mmol/L (3.5-5.1) 05/23/20 05:40 Chloride 103 mmol/L (98-107) 05/23/20 05:40 Carbon Dioxide 25.5 mmol/L (21-32) 05/23/20 05:40 BUN 4 mg/dL (7-18) L 05/23/20 05:40 Creatinine 0.62 mg/dL (0.55-1.02) 05/23/20 05:40 Est GFR (MDRD) Af Amer > 60 (>60) 05/23/20 05:40 Est GFR (MDRD) Non-Af > 60 (>60) 05/23/20 05:40 Glucose 99 mg/dL (65-99) 05/23/20 05:40 Calcium 8.5 mg/dL (8.5-10.1) 05/23/20 05:40 Corrected Calcium 9.5 mg/dL (8.5-10.1) 05/23/20 05:40 Magnesium 1.8 mg/dL (1.7-2.9) 05/23/20 05:40 Total Bilirubin 0.70 mg/dL (0.2-1.0) 05/23/20 05:40 AST 22 Units/L (15-37) 05/23/20 05:40 ALT 22 Units/L (12-78) 05/23/20 05:40 Alkaline Phosphatase 67 Units/L (46-116) 05/23/20 05:40 Total Protein 6.7 g/dL (6.4-8.2) 05/23/20 05:40 Albumin 2.7 g/dL (3.4-5.0) L 05/23/20 05:40 Globulin 4.0 g/dL (2.5-4.5) 05/23/20 05:40 Albumin/Globulin Ratio 0.7 Ratio (1.1-2.1) L 05/23/20 05:40 Amylase 24 Units/L (25-115) L 05/23/20 05:40 Lipase 80 Units/L (73-393) 05/23/20 05:40 HCG, Qual Negative <10 mIU/mL 05/22/20 06:25 Specimen Type Clean catch urine 05/22/20 06:30 Urine Color Yellow (YELLOW) 05/22/20 06:30 Urine Appearance Cloudy (CLEAR) 05/22/20 06:30 Urine pH 6.0 (5.0 - 8.0) 05/22/20 06:30 Ur Specific [place] 1.025 (1.000-1.030) 05/22/20 06:30 Urine Protein 1+ (NEGATIVE) 05/22/20 06:30 Urine Glucose (UA) Negative (NEGATIVE) 05/22/20 06:30 Urine Ketones 4+ (NEGATIVE) 05/22/20 06:30 Urine Occult Blood 2+ (NEGATIVE) 05/22/20 06:30 Urine Nitrite Negative (NEGATIVE) 05/22/20 06:30 Urine Bilirubin Negative (NEGATIVE) 05/22/20 06:30 Urine Urobilinogen 2+ (NORMAL) 05/22/20 06:30 Ur Leukocyte Esterase 3+ (NEGATIVE) 05/22/20 06:30 Urine RBC 0-2 /HPF (0-3) 05/22/20 06:30 Urine WBC 5-10 /HPF (0-5) A 05/22/20 06:30 Ur Squamous Epith Cells Few /HPF (NEGATIVE) 05/22/20 06:30 Urine Bacteria 1+ /HPF (NEGATIVE) 05/22/20 06:30 Ur Culture Indicated? Yes/culture set up 05/22/20 06:30 Plan (1) Acute cholecystitis: Status: Acute Plan: Abx:Zosyn Surgery consulted, lap rehan today. (2) Cholelithiases: Status: Acute Qualifiers: Biliary obstruction: without biliary obstruction Cholecystitis acuity: acute Cholecystitis presence: with cholecystitis Cholelithiasis location: gallbladder Qualified Code(s): K80.00 - Calculus of gallbladder with acute cholecystitis without obstruction (3) Abdominal pain: Status: Acute Qualifiers: Abdominal location: epigastric Qualified Code(s): R10.13 - Epigastric pain (4) Nausea & vomiting: Status: Acute Qualifiers: Vomiting type: bilious vomiting Qualified Code(s): R11.14 - Bilious vomiting
--- NOTE | 2020-05-23 09:09 | US ---
HISTORYRight upper quadrant painSTUDYGallbladder sonogramTechnique: Multiple grayscale sonographic images were obtained.COMPARISONCT abdomen pelvis without contrast 05/22/2020FINDINGSThe gallbladder is distended. There is a stone present within the neck of the gallbladder. The gallbladder lumen is filled with echogenic material which could represent sludge, pus, less likely hemorrhage. There is marked thickening of the gallbladder wall and some pericholecystic fluid. Findings are suggestive of cholelithiasis with acute cholecystitis. The common bile duct is not well demonstrated. The right kidney is unobstructed.IMPRESSIONCholelithiasis with findings suggestive of acute cholecystitis. Surgical evaluation is recommended.Gallbladder lumen filled with echogenic material which could represent sludge, pus, less likely hemorrhageCommon bile duct not well visualized.Electronically signed by: BRIONNA CURRY (May 23, 2020 09:09:14)
[2020-05-23] MEDS ORDERED: DEMEROL INJ ONE (09:23)
[2020-05-23] MEDS ORDERED: LR 1000 ML IV 1,000 ML IV ONE (09:30)
[2020-05-23] MEDS ORDERED: BACTROBAN TOPICAL OINT ONE (10:36)
[2020-05-23] MEDS: BENTYL CAP 10 MG PO SCH ×4 (11:43→21:01)
[2020-05-23] MEDS ORDERED: BENADRYL INJ 50 MG VIAL IVP PRN (12:22)
[2020-05-23] MEDS ORDERED: PHENERGAN INJ 25 MG IM PRN (12:22)
[2020-05-23] MEDS ORDERED: DILAUDID INJ IVP PRN (12:22)
[2020-05-23] MEDS ORDERED: REGLAN INJ 10 MG VIAL IVP PRN (12:22)
[2020-05-23] MEDS ORDERED: ZOFRAN INJ 4 MG VIAL IVP PRN (12:22)
[2020-05-23] MEDS ORDERED: DILAUDID INJ ONE (13:12)
[2020-05-23] MEDS ORDERED: NS IRRIGATION* 3,000 ML ONE (13:48)
[2020-05-23] MEDS: D5 1/2 NS 1000 ML 1,000 ML IV SCH ×2 (14:36→22:08)
[2020-05-23] MEDS: MAGNESIUM SULFATE 1 GRAM/100 mL PREMIX 1 GM/100 ML BAG IV PRN ×2 (15:03→16:43)
[2020-05-23] MEDS: DILAUDID INJ IVP PRN ×2 (17:35→21:16)
[2020-05-23] MEDS: K-RIDER 10 MEQ/NS 100 ML 10 MEQ/100 ML BAG IV PRN ×2 (17:58→21:03)
[2020-05-24] MEDS: DILAUDID INJ IVP PRN ×2 (01:47→07:41)
[2020-05-24] MEDS: D5 1/2 NS 1000 ML 1,000 ML IV SCH ×2 (02:30→06:03)
[2020-05-24] MEDS: ZOSYN VIAL 3.375 GRAMS 3.375 G in NS 100 ML IV + SPIKE MINIBAG* 100 ML IV SCH (05:27)
[2020-05-24 06:23] LABS: BASOPHILS % (AUTO) 0.1 % (0.2-1.0); HEMATOCRIT 25.5 % (36.0-47.0); HEMOGLOBIN 8.8 g/dL (12.0-16.0); LYMPHOCYTES # (AUTO) 0.8 X10^3/uL (1.3-2.9); LYMPHOCYTES % (AUTO) 6.7 % (21.0-51.0); MEAN CORPUSCULAR HGB CONC 34.3 g/dL (33.0-35.0); MEAN CORPUSCULAR VOLUME 84.5 fL (80.0-100.0); MEAN PLATELET VOLUME 7.8 fL (7.4-11.0); MONOCYTES % (AUTO) 8.8 % (0.0-13.0); NEUTROPHILS # (AUTO) 9.8 x10^3/uL (2.2-4.8); NEUTROPHILS % (AUTO) 84.4 % (42.0-75.0); PLATELET COUNT 284 X10^3/uL (150.0-450.0); RED BLOOD COUNT 3.02 X10^6/uL (3.5-5.4); WHITE BLOOD COUNT 11.7 X10^3/uL (3.6-10.0)
[2020-05-24 06:43] LABS: ALANINE AMINOTRANSFERASE 28 Units/L (12-78); ALBUMIN 2.3 g/dL (3.4-5.0); ALKALINE PHOSPHATASE 59 Units/L (46-116); ASPARTATE AMINO TRANSFERASE 29 Units/L (15-37); BLOOD UREA NITROGEN 4 mg/dL (7-18); CALCIUM 8.4 mg/dL (8.5-10.1); CARBON DIOXIDE 25.1 mmol/L (21-32); CHLORIDE 105 mmol/L (98-107); COR CA(FOR HYPOALB) 9.8 mg/dL (8.5-10.1); COR NA(FOR HYPERGLY) 136 mmol/L (136-145); CREATININE 0.54 mg/dL (0.55-1.02); MAGNESIUM 2.2 mg/dL (1.7-2.9); SODIUM 135 mmol/L (136-145); eGFR NON BLACK RACES > 60 (>60)
[2020-05-24] MEDS: ZOFRAN INJ 4 MG VIAL IVP PRN (07:44)
[2020-05-24 10:41] VITALS: BP 109/66
--- NOTE | 2020-05-24 10:50 | W.DIS.FURT ---
Summary of Discharge Discharge Summary of Date Date of Exam: 05/24/20 Admission Date Date of Admission: 05/22/20 Admission Diagnosis Patient Problems (Updated 05/22/20 @ 08:56 by [place] MONZON) Acute cholecystitis (Acute) K81.0 Cholelithiases (Acute) K80.20 Abdominal pain (Acute) R10.9 Nausea & vomiting (Acute) R11.2 Hospital Course: Pt is a 20 yo f no pmhx admitted for acute cholecystitis seen on CTAP and U/S. She received IVF, Abx:Zosyn, and pain/nausea medications. Surgery was consulted and recommended lap rehan. On day of discharge she was s/p lap rehan D#1, doing well with J/P drain that was removed. She was given wound care instructions. Labs/imaging: Wbc 11.7, Hgb 8.8, Plt 284, Na 135, K 4.0, Cr 0.54, Gluc 159. Incidentally it was discovered she had UTI on urine cx positive for E. coli pansensitive. Rx antibiotic course of keflex. Pt was discharged in stable condition with instructions to follow up with surgery and pcp in 1 week. Vital Signs: Vital Signs (72 hours) 05/22/20 06:03 05/22/20 08:10 05/22/20 08:40 Temperature 99.7 F H Pulse Rate 90 Pulse Rate [Left Brachial] Respiratory Rate 20 22 18 Blood Pressure 134/79 Blood Pressure [Left Arm] O2 Sat by Pulse Oximetry 95 05/22/20 10:25 05/22/20 12:00 05/22/20 13:54 Temperature 98.3 F 98.9 F Pulse Rate Pulse Rate [Left Brachial] 90 90 Respiratory Rate 18 18 18 Blood Pressure Blood Pressure [Left Arm] 117/65 116/68 O2 Sat by Pulse Oximetry 96 100 05/22/20 14:24 05/22/20 16:00 05/22/20 16:40 Temperature 99.9 F H Pulse Rate Pulse Rate [Left Brachial] 102 H Respiratory Rate 18 18 18 Blood Pressure Blood Pressure [Left Arm] 130/69 O2 Sat by Pulse Oximetry 100 05/22/20 17:10 05/22/20 20:00 05/22/20 20:27 Temperature 102.3 F H Pulse Rate Pulse Rate [Left Brachial] 131 H Respiratory Rate 18 20 18 Blood Pressure Blood Pressure [Left Arm] 118/66 O2 Sat by Pulse Oximetry 99 05/22/20 21:18 05/22/20 21:27 05/22/20 21:48 Temperature Pulse Rate Pulse Rate [Left Brachial] Respiratory Rate 18 18 18 Blood Pressure Blood Pressure [Left Arm] O2 Sat by Pulse Oximetry 05/22/20 22:54 05/22/20 23:24 05/23/20 00:00 Temperature 99.3 F Pulse Rate Pulse Rate [Left Brachial] 98 H Respiratory Rate 18 18 22 Blood Pressure Blood Pressure [Left Arm] 125/72 O2 Sat by Pulse Oximetry 100 05/23/20 03:50 05/23/20 04:00 05/23/20 04:20 Temperature 101.7 F H Pulse Rate Pulse Rate [Left Brachial] 120 H Respiratory Rate 18 20 18 Blood Pressure Blood Pressure [Left Arm] 119/96 O2 Sat by Pulse Oximetry 96 05/23/20 05:28 05/23/20 05:58 05/23/20 07:55 Temperature 101.6 F H Pulse Rate Pulse Rate [Left Brachial] 126 H Respiratory Rate 18 18 18 Blood Pressure Blood Pressure [Left Arm] 102/59 O2 Sat by Pulse Oximetry 100 05/23/20 09:27 05/23/20 09:32 05/23/20 12:15 Temperature 99.5 F Pulse Rate 122 H Pulse Rate [Left Brachial] Respiratory Rate 20 18 16 Blood Pressure 118/61 Blood Pressure [Left Arm] O2 Sat by Pulse Oximetry 99 05/23/20 12:20 05/23/20 12:25 05/23/20 12:30 Temperature 99.5 F 99.5 F 99.5 F Pulse Rate 107 H 105 H 101 H Pulse Rate [Left Brachial] Respiratory Rate 16 18 18 Blood Pressure 115/61 118/61 113/60 Blood Pressure [Left Arm] O2 Sat by Pulse Oximetry 100 98 97 05/23/20 12:35 05/23/20 12:40 05/23/20 12:45 Temperature 99.5 F 99.5 F 99.5 F Pulse Rate 100 H 94 H 90 Pulse Rate [Left Brachial] Respiratory Rate 18 18 18 Blood Pressure 114/59 115/60 115/61 Blood Pressure [Left Arm] O2 Sat by Pulse Oximetry 97 97 97 05/23/20 12:55 05/23/20 13:10 05/23/20 13:25 Temperature 99.2 F 99.2 F 98.9 F Pulse Rate Pulse Rate [Left Brachial] 87 86 96 H Respiratory Rate 18 18 18 Blood Pressure Blood Pressure [Left Arm] 118/68 115/69 103/64 O2 Sat by Pulse Oximetry 94 L 94 L 98 05/23/20 13:40 05/23/20 13:42 05/23/20 13:55 Temperature 98.8 F 98.8 F Pulse Rate Pulse Rate [Left Brachial] 95 H 95 H Respiratory Rate 18 18 18 Blood Pressure Blood Pressure [Left Arm] 112/61 112/61 O2 Sat by Pulse Oximetry 98 98 05/23/20 14:12 05/23/20 14:27 05/23/20 14:55 Temperature 97.9 F Pulse Rate 83 Pulse Rate [Left Brachial] 104 H Respiratory Rate 18 20 Blood Pressure Blood Pressure [Left Arm] 98/60 O2 Sat by Pulse Oximetry 97 98 05/23/20 15:55 05/23/20 16:00 05/23/20 16:55 Temperature 97.9 F 97.9 F 98.1 F Pulse Rate Pulse Rate [Left Brachial] 108 H 108 H 101 H Respiratory Rate 20 20 20 Blood Pressure Blood Pressure [Left Arm] 102/66 102/66 101/59 O2 Sat by Pulse Oximetry 99 99 98 05/23/20 17:35 05/23/20 17:55 05/23/20 18:05 Temperature 98.1 F Pulse Rate Pulse Rate [Left Brachial] 81 Respiratory Rate 18 20 18 Blood Pressure Blood Pressure [Left Arm] 106/68 O2 Sat by Pulse Oximetry 97 05/23/20 20:00 05/23/20 21:16 05/23/20 21:46 Temperature 98.0 F Pulse Rate Pulse Rate [Left Brachial] 80 Respiratory Rate 18 18 18 Blood Pressure Blood Pressure [Left Arm] 112/65 O2 Sat by Pulse Oximetry 98 05/24/20 00:00 05/24/20 01:47 05/24/20 02:17 Temperature 97.5 F L Pulse Rate Pulse Rate [Left Brachial] 62 Respiratory Rate 20 20 16 Blood Pressure Blood Pressure [Left Arm] 98/58 O2 Sat by Pulse Oximetry 99 05/24/20 04:00 05/24/20 07:41 05/24/20 08:00 Temperature 97.5 F L 98.6 F Pulse Rate Pulse Rate [Left Brachial] 67 73 Respiratory Rate 18 18 18 Blood Pressure Blood Pressure [Left Arm] 117/65 109/66 O2 Sat by Pulse Oximetry 97 99 Labs: Laboratory Last Values WBC 11.7 X10^3/uL (3.6-10.0) H 05/24/20 05:40 RBC 3.02 X10^6/uL (3.5-5.4) L 05/24/20 05:40 Hgb 8.8 g/dL (12.0-16.0) L 05/24/20 05:40 Hct 25.5 % (36.0-47.0) L 05/24/20 05:40 MCV 84.5 fL (80.0-100.0) 05/24/20 05:40 MCH 29.0 pg (27.0-34.0) 05/24/20 05:40 MCHC 34.3 g/dL (33.0-35.0) 05/24/20 05:40 RDW 13.0 % (11.6-16.5) 05/24/20 05:40 Plt Count 284 X10^3/uL (150.0-450.0) 05/24/20 05:40 MPV 7.8 fL (7.4-11.0) 05/24/20 05:40 Neut % (Auto) 84.4 % (42.0-75.0) H 05/24/20 05:40 Lymph % (Auto) 6.7 % (21.0-51.0) L 05/24/20 05:40 [place] % (Auto) 8.8 % (0.0-13.0) 05/24/20 05:40 Eos % (Auto) 0.0 % (0.9-2.9) L 05/24/20 05:40 Baso % (Auto) 0.1 % (0.2-1.0) L 05/24/20 05:40 Neut # (Auto) 9.8 x10^3/uL (2.2-4.8) H 05/24/20 05:40 Lymph # (Auto) 0.8 X10^3/uL (1.3-2.9) L 05/24/20 05:40 [place] # (Auto) 1.0 x10^3/uL (0.3-0.8) H 05/24/20 05:40 Eos # (Auto) 0.0 x10^3/uL (0.0-0.2) 05/24/20 05:40 Baso # (Auto) 0.0 X10^3/uL (0.0-0.1) 05/24/20 05:40 Absolute Nucleated RBC 0.0 /100WBC 05/24/20 05:40 Sodium 135 mmol/L (136-145) L 05/24/20 05:40 Corrected Sodium 136 mmol/L (136-145) 05/24/20 05:40 Potassium 4.0 mmol/L (3.5-5.1) 05/24/20 05:40 Chloride 105 mmol/L (98-107) 05/24/20 05:40 Carbon Dioxide 25.1 mmol/L (21-32) 05/24/20 05:40 BUN 4 mg/dL (7-18) L 05/24/20 05:40 Creatinine 0.54 mg/dL (0.55-1.02) L 05/24/20 05:40 Est GFR (MDRD) Af Amer > 60 (>60) 05/24/20 05:40 Est GFR (MDRD) Non-Af > 60 (>60) 05/24/20 05:40 Glucose 159 mg/dL (65-99) H 05/24/20 05:40 Calcium 8.4 mg/dL (8.5-10.1) L 05/24/20 05:40 Corrected Calcium 9.8 mg/dL (8.5-10.1) 05/24/20 05:40 Magnesium 2.2 mg/dL (1.7-2.9) 05/24/20 05:40 Total Bilirubin 0.20 mg/dL (0.2-1.0) 05/24/20 05:40 AST 29 Units/L (15-37) 05/24/20 05:40 ALT 28 Units/L (12-78) 05/24/20 05:40 Alkaline Phosphatase 59 Units/L (46-116) 05/24/20 05:40 Total Protein 6.0 g/dL (6.4-8.2) L 05/24/20 05:40 Albumin 2.3 g/dL (3.4-5.0) L 05/24/20 05:40 Globulin 3.7 g/dL (2.5-4.5) 05/24/20 05:40 Albumin/Globulin Ratio 0.6 Ratio (1.1-2.1) L 05/24/20 05:40 Amylase 24 Units/L (25-115) L 05/23/20 05:40 Lipase 80 Units/L (73-393) 05/23/20 05:40 HCG, Qual Negative <10 mIU/mL 05/22/20 06:25 Specimen Type Clean catch urine 05/22/20 06:30 Urine Color Yellow (YELLOW) 05/22/20 06:30 Urine Appearance Cloudy (CLEAR) 05/22/20 06:30 Urine pH 6.0 (5.0 - 8.0) 05/22/20 06:30 Ur Specific [place] 1.025 (1.000-1.030) 05/22/20 06:30 Urine Protein 1+ (NEGATIVE) 05/22/20 06:30 Urine Glucose (UA) Negative (NEGATIVE) 05/22/20 06:30 Urine Ketones 4+ (NEGATIVE) 05/22/20 06:30 Urine Occult Blood 2+ (NEGATIVE) 05/22/20 06:30 Urine Nitrite Negative (NEGATIVE) 05/22/20 06:30 Urine Bilirubin Negative (NEGATIVE) 05/22/20 06:30 Urine Urobilinogen 2+ (NORMAL) 05/22/20 06:30 Ur Leukocyte Esterase 3+ (NEGATIVE) 05/22/20 06:30 Urine RBC 0-2 /HPF (0-3) 05/22/20 06:30 Urine WBC 5-10 /HPF (0-5) A 05/22/20 06:30 Ur Squamous Epith Cells Few /HPF (NEGATIVE) 05/22/20 06:30 Urine Bacteria 1+ /HPF (NEGATIVE) 05/22/20 06:30 Ur Culture Indicated? Yes/culture set up 05/22/20 06:30 SARS-CoV-2 (PCR) Negative (NEGATIVE) 05/23/20 08:17 Tissue Pathology To follow 05/23/20 12:09 Reason For Visit: ACUTE CHOLECYSTITIS,CHOLELITHIASIS,NAUSEA,VOMITING Discharge Date Discharge Date: 05/24/20 Discharge Diagnosis All Active Problems (Updated 09/20/20 @ 08:56 by [place] MONZON) Acute cholecystitis (Acute) Cholelithiases (Acute) Abdominal pain (Acute) Nausea & vomiting (Acute) Plan of Treatment: Continue with present treatment and follow up plan. Pt is to keep follow up appointment as instructed and take medications as ordered. Discharge Medications Discharge Medications: No Known Drug Allergies Allergy (Verified 05/22/20 06:07) New Prescriptions cephalexin [Keflex] 500 mg PO BID 5 Days #10 cap 05/24/20 [Rx] oxycodone-acetaminophen [Percocet] 1 tab PO Q4H PRN #20 tab MDD 3 05/24/20 [Rx] Discharge Disposition Discharge Disposition: Home Discharge Condition: Stable
== END 2020-05-24 10:52 | disposition home or self-care (01) ==
LOC: ER 06:02 → MED/SURG 06:02
PROVIDERS: ADMIT Family Medicine; ATTEND Family Medicine
DX: K82.A1 Gangrene of gallbladder in cholecystitis; Z20.828 Contact with and (suspected) exposure to other viral communicable diseases; N39.0 Urinary tract infection, site not specified; B96.29 Other Escherichia coli [E. coli] as the cause of diseases classified elsewhere; K80.00 Calculus of gallbladder with acute cholecystitis without obstruction; K82.8 Other specified diseases of gallbladder; R10.13 Epigastric pain; R11.14 Bilious vomiting